=== PATIENT | male | born 1980 | race Caucasian/White ===

== ENCOUNTER 2018-11-25 23:35 | Emergency (ER) | payer SELFPAY | END 2018-11-26 00:51 | disposition home or self-care (01) | LOC: ERS 23:35 | DX: F41.9 Anxiety disorder, unspecified (principal); R45.6 Violent behavior; F20.9 Schizophrenia, unspecified; F31.9 Bipolar disorder, unspecified; J45.909 Unspecified asthma, uncomplicated; Z79.899 Other long term (current) drug therapy | CPT/HCPCS: 99283 ==